=== PATIENT | female | born 1980 | race Two or more races ===

== ENCOUNTER 2019-05-27 05:45 | Day surgery (SDC) | payer OTHER ==
[~2019-05-27 05:45] MED LIST: PROZAC40 MG PO
== END 2019-05-27 12:00 | disposition home or self-care (01) ==
LOC: CIR.AMB 05:45
PROVIDERS: Plastic Surgery
PROC: 0H0V0JZ Alteration of Bilateral Breast with Synthetic Substitute, Open Approach (ICD-10-PCS; principal; 2019-05-27 07:15)
DX: N64.82 Hypoplasia of breast (principal)

== ENCOUNTER 2023-07-12 14:14 | Inpatient (IN) | payer OTHER ==
[~2023-07-12] VITALS: Ht 152.4 cm; Wt 53.5 kg
[2023-07-12] MEDS ORDERED: VENLAFAXINE HCL25 MG PO (14:34)
[2023-07-12] MEDS ORDERED: WELLBUTRIN SR150 MG PO (14:34)
[2023-07-12] MEDS ORDERED: VENLAFAXINE HC150 M1 PO (14:34)
--- NOTE | 2023-07-12 14:36 | NUR ---
PACIENTE ALERTA Y ORIENTADA X3 REFIERE QUE DESDE LA MANANA DE RAMON COMENZO A PRESENTA S[facility] DE [facility] DONDE RAMON TUVO DIARREAS X8 Y VOMITOS X2. PACIENTE VERBALIZA QUE LE DUELEN LOS [place], LA [place] Y LOS OJOS. SE LE VERONICA S/V Y SE UBICA.
[2023-07-12] MEDS ORDERED: FAMOTIDINE/PF 20 MG in 0.9 % SODIUM CHLORIDE 8 ML IV PUSH STA (14:47)
[2023-07-12] MEDS ORDERED: 0.9 % SODIUM CHLORIDE 1,000 ML IV SCH ×2 (15:00→17:45)
[2023-07-12] MEDS ORDERED: ONDANSETRON HCL 2 MG/ML VIAL IV ONE (15:00)
[2023-07-12] MEDS ORDERED: KETOROLAC TROMETHAMINE 30 MG VIAL IV ONE (15:15)
--- NOTE | 2023-07-12 15:16 | NUR ---
PTE ALERTA Y ORIENTADA X3, RN WISE ORIENTA SOBRE TX MEDICO Y REFIERE ENTENDER Y ACEPTAR. COLECTA MUESTRAS DE LAB Y CANALIZA PTE UTILIZANDO MEDIDAS ASEPTICAS. ADMINISTRA MEDICAMENTOS COLIN ORDEN MEDICA Y NO PRESENTA REACCION ADVERSA.
[2023-07-12 15:48] LABS: HEMATOCRIT 35.5 % (36.0-45.00); HEMOGLOBIN 12.1 g/dL (12.0-15.00); MEAN CELL VOLUME 86.4 fL (80.00-100.00); MEAN CORPUSCULAR HEMOGLOBIN 29.4 pg (27.00-32.0); MEAN CORPUSCULAR HGB CONC 34.1 g/dl (32.0-36.0); PLATELET COUNT 369 K/uL (150-450); RED BLOOD COUNT 4.11 M/uL (4.00-6.00); RED CELL DISTRIBUTION WIDTH 13.6 % (11.5-14.5)
[2023-07-12] MEDS ORDERED: AZITHROMYCIN 500 MG VIAL IV ONE (16:00)
[2023-07-12 16:05] LABS: ALBUMIN 3.6 gm/dL (3.4-5.0); BILIRUBIN TOTAL 0.56 mg/dL (0.3-1.2); CALCIUM 9.5 mg/dL (8.5-10.1); CREATININE SERUM 0.73 mg/dL (0.55-1.02); GFR 87.85; GLOBULINA 3.9 G/DL (2.4-3.5); POTASSIUM 3.31 mEq/L (3.5-5.1); TOTAL PROTEIN 7.5 gm/dL (6.4-8.2)
[2023-07-12 16:33] LABS: AMYLASE 79 U/L (25-115); LIPASE 26 U/L (13-75)
[2023-07-12] MEDS ORDERED: IPRATROPIUM BROMIDE 0.5 MG/2.5 ML AMPUL.NEB IH SCH (17:49)
[2023-07-12] MEDS ORDERED: CEFTRIAXONE SODIUM 2,000 MG in 0.9 % SODIUM CHLORIDE 100 ML IV SCH (17:51)
[2023-07-12] MEDS ORDERED: LACTOBACILLUS ACIDOPHILUS 1 CAP CAP PO SCH (17:57)
[2023-07-12] MEDS ORDERED: METHYLPREDNISOLONE SOD SUCC 125 MG VIAL IV ONE (18:00)
[2023-07-12] MEDS ORDERED: ACETAMINOPHEN 500 MG GEL..CAP PO PRN (18:00)
[2023-07-12] MEDS ORDERED: ONDANSETRON HCL 4 MG in 0.9 % SODIUM CHLORIDE 50 ML IV PRN (18:00)
[2023-07-12 18:42] LABS: PARTIAL THROMBOPLASTIN TIME 30.8 SECONDS (22.0-34.0); PROTHROMBIN TIME 10.5 SECONDS (9.0-11.5)
[2023-07-12 20:50] LABS: URINE APPEARANCE Cloudy; URINE BILIRRUBIN Small (NEGATIVE); URINE BLOOD Negative; URINE COLOR Dark Yellow; URINE GLUCOSE Negative (NEGATIVE); URINE LEUKOCYTE Trace; URINE NITRATE Negative; URINE PROTEIN 30 (NEGATIVE)
[2023-07-12 20:53] LABS: URINE RBC 9.3 uL (0.0-20.8); URINE WBC 30.2 uL (0.0-23.2)
[2023-07-12 21:11] LABS: URINE CRYSTALS FEW /HPF; URINE MUCUS HEAVY
[2023-07-13] MEDS ORDERED: FAMOTIDINE/PF 20 MG in 0.9 % SODIUM CHLORIDE 8 ML IV PUSH SCH (09:00)
[2023-07-13] MEDS ORDERED: AZITHROMYCIN 500 MG in 0.9 % SODIUM CHLORIDE 250 ML IV SCH (09:00)
[2023-07-13] MEDS ORDERED: MENTHOL/CETYLPYRD CL 1 LOZENGE MM PRN (10:45)
[2023-07-13] MEDS ORDERED: FLUTICASONE PROPIONATE 50 MCG SPRAY NASAL SCH (21:00)
[2023-07-14 06:25] LABS: HEMATOCRIT 30.7 % (36.0-45.00); HEMOGLOBIN 10.4 g/dL (12.0-15.00); MEAN CORPUSCULAR HEMOGLOBIN 28.8 pg (27.00-32.0); MEAN CORPUSCULAR HGB CONC 33.9 g/dl (32.0-36.0); PLATELET COUNT 314 K/uL (150-450); RED BLOOD COUNT 3.62 M/uL (4.00-6.00); RED CELL DISTRIBUTION WIDTH 13.9 % (11.5-14.5)
[2023-07-14 07:05] LABS: ALBUMIN 2.8 gm/dL (3.4-5.0); BILIRUBIN TOTAL 0.16 mg/dL (0.3-1.2); C-REACTIVE PROTEIN 1.78 MG/DL (0.00-0.29); CREATININE SERUM 0.68 mg/dL (0.55-1.02); GFR 95.35; GLOBULINA 2.6 G/DL (2.4-3.5); MAGNESIUM 1.7 mg/dL (1.8-2.4); PHOSPHOROUS 3.3 mg/dL (2.5-4.9); POTASSIUM 3.83 mEq/L (3.5-5.1); TOTAL PROTEIN 5.4 gm/dL (6.4-8.2)
[2023-07-14 08:35] LABS: PLATELET ESTIMATE NORMAL (NORMAL)
[2023-07-14] MEDS ORDERED: FAMOTIDINE/PF 20 MG in 0.9 % SODIUM CHLORIDE 8 ML IV PUSH SCH (17:00)
== END 2023-07-15 12:07 | disposition home or self-care (01) | DRG 202 ==
LOC: ER 14:15 → MEDI 18:30 → MEDJ 18:30 → MEDI 18:34
PROVIDERS: General Practice; Internal Medicine Infectious Disease; ADMIT Internal Medicine; ATTEND Internal Medicine
PROC: BW24ZZZ Computerized Tomography (CT Scan) of Chest and Abdomen (ICD-10-PCS; principal; 2023-07-12)
DX: J20.9 Acute bronchitis, unspecified (principal); J18.9 Pneumonia, unspecified organism; R65.10 Systemic inflammatory response syndrome (SIRS) of non-infectious origin without acute organ dysfunction; B96.0 Mycoplasma pneumoniae [M. pneumoniae] as the cause of diseases classified elsewhere; J06.9 Acute upper respiratory infection, unspecified

== ENCOUNTER 2023-11-08 16:28 | Emergency (ER) | payer OTHER ==
[~2023-11-08] VITALS: Ht 157.5 cm; Wt 54.4 kg
[~2023-11-08 16:28] MED LIST changes: +VENLAFAXINE HC150 M1 PO; +VENLAFAXINE HCL25 MG PO; +WELLBUTRIN SR150 MG PO
[2023-11-08] MEDS ORDERED: MEPERIDINE HCL 25 MG/ML AMPUL IM STA (18:08)
[2023-11-08] MEDS ORDERED: KETOROLAC TROMETHAMINE 30 MG VIAL IM STA (18:08)
[2023-11-08] MEDS ORDERED: KETOROLAC TROMETHAMINE 30 MG VIAL ONE (18:22)
== END 2023-11-08 20:07 | disposition home or self-care (01) ==
LOC: ER 16:29
DX: S22.32XA Fracture of one rib, left side, initial encounter for closed fracture (principal); W18.39XA Other fall on same level, initial encounter; Y93.89 Activity, other specified; Y92.89 Other specified places as the place of occurrence of the external cause